=== PATIENT | male | born 1995 | race Caucasian/White ===

== ENCOUNTER 2018-03-28 09:48 | Emergency (ER) | payer BC ==
--- NOTE | 2018-03-28 10:35 | UC ---
Skin Complaint HPI - HPI Summary HPI Summary: Pt is a 23 y/o M p/w rash located on arms and generally around the body. Assoc. Sx: Itching, swelling. Denies: SOB. Pt developed hives onsetting Monday ~1400 s/ p cleaning out a house. - History of Current Complaint Chief Complaint: UCRas Time Seen by Provider: 03/28/18 10:31 Stated Complaint: RASH Hx Obtained From: Patient Onset/Duration: Gradual Onset, Lasting Days - 3 days, Still Present Skin Exposure Onset/Duration: Days Ago - Monday Pain Intensity: 0 Location: Generalized Associated Signs & Symptoms: Positive: Rash - hives - Allergy/Home Medications Allergies/Adverse Reactions: Allergies Allergy/AdvReac Type Severity Reaction Status Date / Time beeswax Allergy anaph Verified 03/28/18 10:12 cats /dogs Allergy Congestion Uncoded 03/28/18 10:13 Home Medications: Home Medications Cetirizine* [ZyrTEC 10 MG TAB*] 10 mg PO DAILY 03/28/18 [History Confirmed 03/28] Review of Systems Constitutional: Negative - fever Skin: Rash - hives - itching, swelling Respiratory: Negative - SOB All Other Systems Reviewed And Are Negative: Yes PMH/Surg Hx/FS Hx/Imm Hx Other Endocrine History: Neg: DM Other Cardiovascular History: Neg: CAD, HTN - Surgical History Surgical History: Yes Surgery Procedure, Year, and Place: right knee - Family History Known Family History: Negative: Cardiac Disease, Hypertension, Diabetes - Social History Occupation: Employed Full-time Lives: With Family Alcohol Use: Occasionally Substance Use Type: None Smoking Status (MU): Light Every Day Tobacco Smoker Physical Exam - Summary Physical Exam Summary: General: well-appearing, no pain distress Skin: warm, color reflects adequate perfusion, dry, Scattered papules 1-4 mm in size, erythemenous base, some are postules located on forearms, face, neck. Head: normal Eyes: EOMI, SHEILA ENT: normal Neck: supple, nontender Respiratory: CTA, breath sounds present Cardiovascular: RRR Abdomen: soft, nontender Bowel: present Musculoskeletal: normal, strength/ROM intact Neurological: sensory/motor intact, A&O x3 Psychological: affect/mood appropriate Triage Information Reviewed: Yes Vital Signs: Initial Vital Signs Temp 98.1 F 07/18/18 10:09 Pulse 52 03/28/18 10:09 Resp 15 03/28/18 10:09 BP 112/78 03/28/18 10:09 Pulse Ox 100 03/28/18 10:09 Vital Signs Reviewed: Yes Course/Dx - Course Course Of Treatment: PROBABLE CONTACT DERMATITIS. RX PREDNISONE. F/U PMD; RECHECK SOONER IF WORSE. - Diagnoses Provider Diagnoses: RASH Discharge - Sign-Out/Discharge Documenting (check all that apply): Patient Departure - Discharge Plan Condition: Stable Disposition: HOME Prescriptions: Mupirocin 1 applic TOPICAL TID #22 gm predniSONE TAB* [Deltasone 20 MG TAB*] 40 mg PO DAILY #10 tab Patient Education Materials: Acute Rash (ED), Dermatitis (ED) Referrals: [facility] [Outside] Additional Instructions: FOLLOW UP WITH YOUR DOCTOR IF NOT COMPLETELY IMPROVED. GET RECHECKED FOR ANY WORSENING OF YOUR CONDITION OR QUESTIONS OR CONCERNS. - Billing Disposition and Condition Condition: STABLE Disposition: Home
== END 2018-03-28 10:45 | disposition home or self-care (01) ==
LOC: UCEAST 09:48
DX: R21 Rash and other nonspecific skin eruption (principal); F17.200 Nicotine dependence, unspecified, uncomplicated; Z91.030 Bee allergy status; Z91.048 Other nonmedicinal substance allergy status
CPT/HCPCS: 99202; G0463